=== PATIENT | male | born 1965 | race Caucasian/White ===

== ENCOUNTER 2022-10-11 12:08 | Inpatient (IN) | payer OTHER ==
[2022-10-11 13:32] LABS: #Eosinphils 0.1 10x3/uL (0.0-0.5); #Monocytes 0.4 10x3/uL (0.0-1.1); #Neutrophils 4.9 10x3/uL (1.5-8.4); %Basophils 0.3 % (0.0-2.0); %Eosinophils 1.5 % (0.0-6.0); %Lymphocytes 20.1 % (18.0-47.0); %Monocytes 6.3 % (0.0-10.0); %Neutrophils 71.5 % (40.0-75.0); Hemoglobin 16.1 g/dL (13.5-17.5); Mean Corpuscular HGB CONC 33.2 g/dL (32.0-36.0); Mean Corpuscular Hemoglobin 27.8 pg (27.0-33.0); Mean Corpuscular Volume 83.8 fl (81.2-95.1); Mean Platelet Volume 11.1 fl (7.4-10.4); Platelet Count 196 10x3/uL (150-450); RBC Distribution Width 13.2 % (11.5-14.5); Red Blood Cell (RBC) Count 5.79 10x6/uL (4.32-5.72); White Blood Cell (WBC) Count 6.8 10x3/uL (3.5-10.5)
[2022-10-11 13:34] LABS: ALT (SGPT) 25 U/L (8-55); AST (SGOT) 19 U/L (5-34); Acetaminophen Less than 10.0 mcg/mL (10.0-30.0); Albumin 4.4 g/dL (3.5-5.0); Alcohol Less than 10 mg/dL (Less than 10); Alkaline Phosphatase 66 U/L (40-110); Anion Gap 16 mmol/L (10-20); BUN (Urea Nitrogen) 22 mg/dL (8.4-25.7); Bilirubin, Total 0.5 mg/dL (0.2-1.2); Calc. Creatinine Clearance 0 mL/min (70-130); Calcium 9.4 mg/dL (7.8-10.44); Carbon Dioxide 21 mmol/L (22-29); Chloride 104 mmol/L (98-107); Estimated GFR 70; Globulin 2.7 g/dL (2.4-3.5); Glucose 99 mg/dL (70-105); Magnesium 2.5 mg/dL (1.6-2.6); Potassium 4.2 mmol/L (3.5-5.1); Protein, Total 7.1 g/dL (6.0-8.3); Salicylate Less than 8.0 mg/dL (15.0-30.0); Sodium 137 mmol/L (136-145)
[2022-10-11] MEDS ORDERED: Acetaminophen 325 MG TAB PO PRN (14:44)
[2022-10-11] MEDS ORDERED: Ondansetron ODT 4 MG TAB PO PRN (14:44)
[2022-10-11] MEDS ORDERED: Ondansetron PF 4 MG/2 ML Vial IVP PRN (14:44)
[2022-10-11 15:12] LABS: Magnesium 2.4 mg/dL (1.6-2.6)
[2022-10-11 15:49] LABS: Bilirubin Neg (Negative); Blood, Urine Negative (Negative); Clarity Clear (Clear); Glucose, Urine (Dipstick) >=1000 mg/dL (Negative); Ketone, Urine 5 mg/dL (Negative); Leukocyte Negative (Negative); Nitrite Negative (Negative); Protein, Urine (Dipstick) Negative (Neg-Trace); Urobilinogen Normal mg/dL (Less than 2)
[2022-10-11 16:03] LABS: Free T4 (Free Thyroxine) 1.1 ng/dL (0.70-1.48)
[2022-10-11] MEDS ORDERED: Amiodarone 150 MG/3 ML VIAL ONE (16:14)
[2022-10-11] MEDS ORDERED: Amiodarone In Dextrose 200 ML ONE (16:15)
[2022-10-11 16:55] LABS: Digoxin Less than 0.15 ng/mL (0.8-2.0)
[2022-10-11 17:19] LABS: SARS-CoV-2 NAA Rapid Test Not Detected (NotDetected)
[2022-10-11] MEDS: Amiodarone In Dextrose 360 MG in Premix Bag 1 BAG IVPB SCH (22:32)
[2022-10-12 03:47] LABS: Anion Gap 15 mmol/L (10-20); BUN (Urea Nitrogen) 18 mg/dL (8.4-25.7); Calc. Creatinine Clearance 96 mL/min (70-130); Calcium 8.6 mg/dL (7.8-10.44); Carbon Dioxide 24 mmol/L (22-29); Chloride 103 mmol/L (98-107); Estimated GFR 70; Glucose 106 mg/dL (70-105); Potassium 3.9 mmol/L (3.5-5.1); Sodium 138 mmol/L (136-145)
[2022-10-12 03:48] LABS: #Eosinphils 0.2 10x3/uL (0.0-0.5); #Monocytes 0.5 10x3/uL (0.0-1.1); #Neutrophils 4.2 10x3/uL (1.5-8.4); %Basophils 0.4 % (0.0-2.0); %Eosinophils 2.6 % (0.0-6.0); %Lymphocytes 27.9 % (18.0-47.0); %Monocytes 6.6 % (0.0-10.0); %Neutrophils 62.4 % (40.0-75.0); Hemoglobin 17.1 g/dL (13.5-17.5); Mean Corpuscular HGB CONC 33.2 g/dL (32.0-36.0); Mean Corpuscular Hemoglobin 28.2 pg (27.0-33.0); Mean Corpuscular Volume 84.8 fl (81.2-95.1); Mean Platelet Volume 10.8 fl (7.4-10.4); Platelet Count 183 10x3/uL (150-450); RBC Distribution Width 13.2 % (11.5-14.5); Red Blood Cell (RBC) Count 6.07 10x6/uL (4.32-5.72); White Blood Cell (WBC) Count 6.8 10x3/uL (3.5-10.5)
[2022-10-12] MEDS ORDERED: Levothyroxine Sodium 100 MCG TAB PO SCH (09:00)
[2022-10-12] MEDS ORDERED: Levothyroxine Sodium 75 MCG TAB PO SCH (09:00)
[2022-10-12] MEDS ORDERED: Potassium Chloride 20 MEQ TAB PO SCH (10:00)
[2022-10-12] MEDS: Amiodarone In Dextrose 360 MG in Premix Bag 1 BAG IVPB SCH (10:10)
[2022-10-12 11:12] LABS: Magnesium 2.4 mg/dL (1.6-2.6)
[2022-10-12] MEDS: Carvedilol 6.25 MG TAB PO SCH (17:59)
[2022-10-12] MEDS: Mexiletine HCl 150 MG CAP PO SCH (18:00)
[2022-10-12] MEDS: Sacubitril 24MG/Valsartan 26 MG TAB PO SCH (20:35)
[2022-10-13 04:30] LABS: #Eosinphils 0.2 10x3/uL (0.0-0.5); #Monocytes 0.6 10x3/uL (0.0-1.1); #Neutrophils 5.3 10x3/uL (1.5-8.4); %Basophils 0.4 % (0.0-2.0); %Eosinophils 2.1 % (0.0-6.0); %Lymphocytes 23.8 % (18.0-47.0); %Monocytes 7.1 % (0.0-10.0); %Neutrophils 66.3 % (40.0-75.0); Hemoglobin 15.7 g/dL (13.5-17.5); Mean Corpuscular HGB CONC 33.1 g/dL (32.0-36.0); Mean Corpuscular Volume 84.8 fl (81.2-95.1); Mean Platelet Volume 11.1 fl (7.4-10.4); Platelet Count 174 10x3/uL (150-450); RBC Distribution Width 13.3 % (11.5-14.5); White Blood Cell (WBC) Count 7.9 10x3/uL (3.5-10.5)
[2022-10-13 04:37] LABS: Anion Gap 14 mmol/L (10-20); BUN (Urea Nitrogen) 21 mg/dL (8.4-25.7); Calc. Creatinine Clearance 101 mL/min (70-130); Calcium 8.5 mg/dL (7.8-10.44); Carbon Dioxide 23 mmol/L (22-29); Chloride 104 mmol/L (98-107); Estimated GFR 75; Glucose 110 mg/dL (70-105); Potassium 3.8 mmol/L (3.5-5.1); Sodium 137 mmol/L (136-145)
[2022-10-13] MEDS: Levothyroxine Sodium 75 MCG TAB PO SCH (05:00)
[2022-10-13] MEDS: Levothyroxine Sodium 100 MCG TAB PO SCH (05:00)
[2022-10-13 05:09] VITALS: BMI 31.4
[2022-10-13] MEDS: Carvedilol 6.25 MG TAB PO SCH ×2 (07:38→16:50)
[2022-10-13] MEDS: Mexiletine HCl 150 MG CAP PO SCH ×2 (07:44→20:18)
[2022-10-13] MEDS: Sacubitril 24MG/Valsartan 26 MG TAB PO SCH ×2 (08:31→20:18)
[2022-10-13] MEDS ORDERED: Potassium Chloride 20 MEQ TAB PO SCH ×3 (09:00→19:00)
[2022-10-13 09:57] LABS: Magnesium 2.2 mg/dL (1.6-2.6)
[2022-10-13] MEDS ORDERED: Amiodarone 200 MG TAB PO SCH ×2 (10:00→18:00)
[2022-10-13 18:27] LABS: Anion Gap 14 mmol/L (10-20); BUN (Urea Nitrogen) 17 mg/dL (8.4-25.7); Calc. Creatinine Clearance 104 mL/min (70-130); Calcium 8.9 mg/dL (7.8-10.44); Carbon Dioxide 24 mmol/L (22-29); Chloride 104 mmol/L (98-107); Estimated GFR 77; Glucose 104 mg/dL (70-105); Magnesium 2.1 mg/dL (1.6-2.6); Potassium 3.9 mmol/L (3.5-5.1); Sodium 138 mmol/L (136-145)
[2022-10-13 18:35] LABS: Phosphorus 2.7 mg/dL (2.3-4.7)
[2022-10-14 05:12] LABS: #Eosinphils 0.2 10x3/uL (0.0-0.5); #Monocytes 0.6 10x3/uL (0.0-1.1); #Neutrophils 5.4 10x3/uL (1.5-8.4); %Basophils 0.5 % (0.0-2.0); %Lymphocytes 28.1 % (18.0-47.0); %Monocytes 7.3 % (0.0-10.0); %Neutrophils 61.8 % (40.0-75.0); Hemoglobin 15.9 g/dL (13.5-17.5); Mean Corpuscular Hemoglobin 28.1 pg (27.0-33.0); Mean Corpuscular Volume 85.2 fl (81.2-95.1); Mean Platelet Volume 11.2 fl (7.4-10.4); Platelet Count 194 10x3/uL (150-450); RBC Distribution Width 13.3 % (11.5-14.5); Red Blood Cell (RBC) Count 5.66 10x6/uL (4.32-5.72); White Blood Cell (WBC) Count 8.7 10x3/uL (3.5-10.5)
[2022-10-14] MEDS: Levothyroxine Sodium 75 MCG TAB PO SCH (05:15)
[2022-10-14] MEDS: Levothyroxine Sodium 100 MCG TAB PO SCH (05:15)
[2022-10-14 05:24] LABS: Anion Gap 13 mmol/L (10-20); BUN (Urea Nitrogen) 13 mg/dL (8.4-25.7); Calc. Creatinine Clearance 122 mL/min (70-130); Calcium 8.9 mg/dL (7.8-10.44); Carbon Dioxide 23 mmol/L (22-29); Chloride 106 mmol/L (98-107); Estimated GFR 93; Glucose 105 mg/dL (70-105); Magnesium 2.1 mg/dL (1.6-2.6); Potassium 4.1 mmol/L (3.5-5.1); Sodium 138 mmol/L (136-145)
[2022-10-14] MEDS: Mexiletine HCl 150 MG CAP PO SCH (08:15)
[2022-10-14] MEDS: Sacubitril 24MG/Valsartan 26 MG TAB PO SCH (08:15)
[2022-10-14] MEDS: Carvedilol 6.25 MG TAB PO SCH ×2 (08:15→16:00)
[2022-10-14] MEDS ORDERED: Amiodarone 200 MG TAB PO SCH (09:00)
[2022-10-14] MEDS ORDERED: ALPRAZolam 0.25 MG TAB PO PRN (15:03)
[2022-10-14 15:33] LABS: SARS-CoV-2 NAA Rapid Test Not Detected (NotDetected)
[2022-10-14 17:40] VITALS: BP 102/52; TEMP 97.9
== END 2022-10-14 18:35 | disposition short-term general hospital (02) | DRG 309 ==
LOC: CSHERS 12:08 → SUATTDRO 12:08 → CSHIMCU 16:33
PROVIDERS: ADMIT Internal Medicine; ATTEND Family Medicine
DX: I47.20 Ventricular tachycardia, unspecified (principal); I42.8 Other cardiomyopathies; I50.20 Unspecified systolic (congestive) heart failure; E03.9 Hypothyroidism, unspecified; Z20.822 Contact with and (suspected) exposure to COVID-19; Z95.810 Presence of automatic (implantable) cardiac defibrillator; Z98.890 Other specified postprocedural states
CPT/HCPCS: 36415; 71045; 80048; 80053; 80162; 80307; 81003; 83735; 84100; 84439; 84443; 84481; 84484; 85025; 85379; 93005; 93010; 93306; 94760; 94762; 96365; J0282; J0283; J1650; U0002